=== PATIENT | male | born 1935 | race Caucasian/White ===

== ENCOUNTER 2018-01-13 10:12 | Observation (INO) | payer MEDICARE, OTHER ==
[~2018-01-13] VITALS: Ht 175.3 cm; Wt 56.8 kg
[~2018-01-13 10:12] MED LIST: AMIO200T57 PO; BIMA2.5D LEFTEYE; BRIM5DRO LEFTEYE; CLOP75TA35 PO
[2018-01-13] MEDS ORDERED: nitroGLYCERIN 0.4mg/hour patch TD ONE (10:20)
[2018-01-13 10:34] LABS: BASOPHILS % (AUTO) 0.1 % (0-1); EOSINOPHILS # (AUTO) 0.1 X10'3 (0-0.9); HEMOGLOBIN 11.4 g/dl (14.0-17.9); LYMPHOCYTES # (AUTO) 1.7 X10'3 (1.1-4.8); LYMPHOCYTES % (AUTO) 36.5 % (21-51); MEAN CORPUSCULAR HEMOGLOBIN 35.6 PG (27.0-31.0); MEAN CORPUSCULAR HGB CONC 35.7 % (33.0-36.5); MEAN CORPUSCULAR VOLUME 99.7 FL (78-98); MEAN PLATELET VOLUME 7.6 FL (7.4-10.4); MONOCYTES # (AUTO) 0.6 X10'3 (0-0.9); MONOCYTES % (AUTO) 12.5 % (2-12); NEUTROPHILS # (AUTO) 2.2 X10'3 (1.8-7.7); NEUTROPHILS % (AUTO) 47.9 % (42-75); PLATELET COUNT 206 X10'3 (140-440); RED BLOOD COUNT 3.21 X10'6 (4.70-6.10); WHITE BLOOD COUNT 4.6 X10'3 (4.5-11.0)
[2018-01-13 10:44] LABS: PARTIAL THROMBOPLASTIN TIME 31 SECONDS (22-32); PROTHROMBIN TIME 19.9 SECONDS (9.0-12.0)
[2018-01-13] MEDS ORDERED: WARF2.5T PO (10:49)
[2018-01-13] MEDS ORDERED: OMEG1CAP46 PO (10:49)
[2018-01-13] MEDS ORDERED: LEVO100T PO (10:49)
[2018-01-13] MEDS ORDERED: BILB1CAP PO (10:49)
[2018-01-13] MEDS ORDERED: SAW450CA7 PO (10:49)
[2018-01-13] MEDS ORDERED: SOTA80TA69 PO (10:49)
[2018-01-13] MEDS ORDERED: LACT1CAP65 PO (10:49)
[2018-01-13] MEDS ORDERED: IRON150C5 PO (10:49)
[2018-01-13] MEDS ORDERED: VITA-332 PO (10:49)
[2018-01-13 10:56] LABS: ALANINE AMINOTRANSFERASE 32 U/L (12-78); ALBUMIN 3.2 G/DL (3.4-5.0); ALKALINE PHOSPHATASE 70 IU/L (46-116); ANION GAP 9 (8-16); ASPARTATE AMINO TRANSFERASE 30 U/L (10-37); BILIRUBIN,TOTAL 0.6 MG/DL (0.1-1.0); BLOOD UREA NITROGEN 18 MG/DL (7-18); CALCIUM 8.9 MG/DL (8.5-10.1); CHLORIDE 100 MMOL/L (99-107); ETHANOL < 0.010 GM/DL (0.0-0.010); GLUCOSE 125 MG/DL (70-104); MAGNESIUM 2.1 MG/DL (1.5-2.4); POTASSIUM 4.3 MMOL/L (3.5-5.1); SODIUM 135 MMOL/L (135-145); TOTAL CARBON DIOXIDE 25.6 MMOL/L (24-32); TOTAL PROTEIN 6.3 G/DL (6.4-8.2); eGFR 71 ML/MIN
[2018-01-13] MEDS ORDERED: acetaminophen 325mg tablet PO PRN (12:05)
[2018-01-13] MEDS ORDERED: morphine 4 MG/ML inj SYRINge IV PRN (12:05)
[2018-01-13] MEDS ORDERED: mag hydrox/Alum hydrox/simeth 30ml oral suspension PO PRN (12:05)
[2018-01-13] MEDS ORDERED: ondansetron/PF 4mg/2ml inj IV ONE (12:05)
[2018-01-13] MEDS ORDERED: ondansetron/PF 4mg/2ml inj IV PRN (12:05)
[2018-01-13] MEDS ORDERED: magnesium hydroxide 30ml (MOM) UD suspension PO PRN (12:05)
[2018-01-13] MEDS ORDERED: morphine 4 MG/ML inj SYRINge IV ONE (12:05)
[2018-01-13] MEDS ORDERED: VITAMIN A ACETATE PO PRN (12:15)
[2018-01-13] MEDS ORDERED: FATTY ACIDS PO SCH (13:00)
[2018-01-13] MEDS ORDERED: OMEGA PO SCH (13:00)
[2018-01-13] MEDS ORDERED: brimonidine 0.2% 5 ML ophthalmic drops LEFTEYE SCH (13:00)
[2018-01-13] MEDS ORDERED: FISH OIL PO SCH (13:00)
[2018-01-13 14:00] VITALS: BP 154/75
[2018-01-13] MEDS: brimonidine 0.2% 5 ML ophthalmic drops LEFTEYE SCH ×2 (15:24→21:19)
[2018-01-13] MEDS ORDERED: WARF-55 PO ×2 (16:14)
[2018-01-13 19:01] LABS: CLARITY,URINE CLEAR (Clear); COLOR,URINE YELLOW (Yellow); GLUCOSE, URINE NEGATIVE (Neg); KETONES,URINE 15 mg/dl (Neg); LEUKOCYTE ESTERASE ,URINE NEGATIVE (Neg); NITRITES, URINE NEGATIVE (Neg); OCCULT BLOOD,URINE NEGATIVE (Neg); PROTEIN,URINE NEGATIVE (Neg); UA COLLECTION TYPE CLN CATCH MIDSTREAM; UROBILINOGEN,URINE 0.2 E.U/dL (0.2-1.0)
[2018-01-13] MEDS ORDERED: latanoprost 0.005% 2.5ml ophthalmic drops LEFTEYE SCH (21:00)
[2018-01-13] MEDS ORDERED: temazepam 15mg capsule PO PRN (21:00)
[2018-01-13] MEDS ORDERED: warfarin 2.5mg tablet PO SCH ×2 (21:00)
[2018-01-13] MEDS: sotalol 40mg tablet PO SCH (21:25)
[2018-01-13] MEDS: lactobacillus rhamnosus 10,000 MMU CELLS/CAPSULE PO SCH (21:29)
[2018-01-13 23:00] VITALS: BP 114/64
[2018-01-14 00:36] VITALS: BP 153/72
[2018-01-14 01:21] VITALS: BP 119/55
[2018-01-14] MEDS ORDERED: nitroGLYCERIN 0.4mg SUBLingual tab SL PRN (01:25)
[2018-01-14 05:42] LABS: BASOPHILS % (AUTO) 0.2 % (0-1); EOSINOPHILS # (AUTO) 0.1 X10'3 (0-0.9); EOSINOPHILS % (AUTO) 1.7 % (0-6); HEMATOCRIT 29.4 % (42.0-52.0); HEMOGLOBIN 10.3 g/dl (14.0-17.9); LYMPHOCYTES # (AUTO) 1.3 X10'3 (1.1-4.8); LYMPHOCYTES % (AUTO) 21.4 % (21-51); MEAN CORPUSCULAR HGB CONC 35.1 % (33.0-36.5); MEAN CORPUSCULAR VOLUME 102.3 FL (78-98); MEAN PLATELET VOLUME 8.4 FL (7.4-10.4); MONOCYTES # (AUTO) 0.6 X10'3 (0-0.9); MONOCYTES % (AUTO) 10.7 % (2-12); NEUTROPHILS # (AUTO) 4.1 X10'3 (1.8-7.7); PLATELET COUNT 153 X10'3 (140-440); RED BLOOD COUNT 2.87 X10'6 (4.70-6.10); RED CELL DISTRIBUTION WIDTH 13.3 % (11.5-14.5); WHITE BLOOD COUNT 6.1 X10'3 (4.5-11.0)
[2018-01-14 05:56] LABS: ANION GAP 7 (8-16); BLOOD UREA NITROGEN 18 MG/DL (7-18); BUN/CREATININE RATIO 17.6 (5.4-32.0); CALCIUM 8.4 MG/DL (8.5-10.1); CHLORIDE 101 MMOL/L (99-107); CHOL/HDL RATIO 4.6 (0.00-4.99); CHOLESTEROL 174 MG/DL (0-200); CREATININE 1.02 MG/DL (0.60-1.10); GLUCOSE 106 MG/DL (70-104); HDL CHOLESTEROL 38 MG/DL (35-60); LDL CHOLESTEROL 88 MG/DL (50-100); POTASSIUM 4.3 MMOL/L (3.5-5.1); SODIUM 135 MMOL/L (135-145); TOTAL CARBON DIOXIDE 26.8 MMOL/L (24-32); TRIGLYCERIDES 211 MG/DL (20-135); eGFR 70 ML/MIN
[2018-01-14 07:00] VITALS: BP 148/77
[2018-01-14] MEDS ORDERED: aspirin 81mg tablet.DR PO SCH (08:00)
[2018-01-14] MEDS ORDERED: BILBERRY FRUIT EXTRACT PO SCH (08:00)
[2018-01-14] MEDS ORDERED: iron polysaccharide complex 150mg capsule PO SCH (08:00)
[2018-01-14] MEDS ORDERED: SAW PALMETTO FRUIT PO SCH (08:00)
[2018-01-14] MEDS ORDERED: levoTHYROXINE 25mcg tablet PO SCH (08:00)
[2018-01-14 08:16] LABS: INR 1.8 INR; PROTHROMBIN TIME 17.8 SECONDS (9.0-12.0)
[2018-01-14] MEDS: sotalol 40mg tablet PO SCH (08:31)
[2018-01-14] MEDS: lactobacillus rhamnosus 10,000 MMU CELLS/CAPSULE PO SCH (08:31)
[2018-01-14] MEDS: brimonidine 0.2% 5 ML ophthalmic drops LEFTEYE SCH (08:32)
[2018-01-14] MEDS ORDERED: ASPI-1071 PO (10:39)
[2018-01-14] MEDS ORDERED: NITR0.4T51 SL (10:39)
[2018-01-14] MEDS ORDERED: ATOR10TA PO (17:20)
[2018-01-14] MEDS ORDERED: warfarin 5mg tablet PO SCH (21:00)
== END 2018-01-14 12:14 | disposition home or self-care (01) ==
LOC: ER 10:13 → ED HOLD 12:05 → SUR 3N 13:40
PROVIDERS: ADMIT Hospitalist; ATTEND Hospitalist
DX: R07.89 Other chest pain (principal); I48.0 Paroxysmal atrial fibrillation; D64.9 Anemia, unspecified; R06.02 Shortness of breath; E03.9 Hypothyroidism, unspecified; H40.9 Unspecified glaucoma; I48.2 Chronic atrial fibrillation; I10 Essential (primary) hypertension; Z86.718 Personal history of other venous thrombosis and embolism; Z79.01 Long term (current) use of anticoagulants
CPT/HCPCS: 36415; 71045; 80048; 80053; 80061; 80320; 81003; 83735; 83880; 84443; 84484; 85025; 85610; 85730; 87070; 93005; 93306; 96374; 96375; 96376; 99285; G0378; J2270; J2405

== ENCOUNTER 2022-01-31 10:46 | Day surgery (SDC) | payer MEDICARE ==
[2022-01-31] VITALS (12 sets, daily range): BP systolic 110–180; BP diastolic 43–85
[~2022-01-31] VITALS: Ht 175.3 cm; Wt 59.6 kg
[~2022-01-31 10:46] MED LIST changes: -AMIO200T57 PO; -BIMA2.5D LEFTEYE; -BRIM5DRO LEFTEYE; -CLOP75TA35 PO; +DOCUMENT DATE & TIME OF BETA-BLOCKER PO ONE; +HYDR-3964 PO; +LATA2.5D14 LEFTEYE; +LEVO50TA8 PO; +SOTA80TA73 PO; +SULF-14 PO; +WARF-55 PO; +cefazolin/dext.iso 2gm/50ml IV ONE; +famotidine 20mg tablet PO ONE; +ringers solution, lacted 1,000 ML IV SCH; +vancomycin/NS 1 GM in NS 250 ML IV ONE
[2022-01-31 12:43] LABS: BASOPHILS % (AUTO) 0.5 % (0-1); EOSINOPHILS # (AUTO) 0.1 X10'3 (0-0.9); EOSINOPHILS % (AUTO) 1.7 % (0-6); LYMPHOCYTES # (AUTO) 1.3 X10'3 (1.1-4.8); LYMPHOCYTES % (AUTO) 22.6 % (21-51); MEAN CORPUSCULAR HEMOGLOBIN 34.7 PG (27.0-31.0); MEAN CORPUSCULAR HGB CONC 33.9 g/dL (33.0-36.5); MEAN CORPUSCULAR VOLUME 102.4 FL (78-98); MEAN PLATELET VOLUME 8.3 FL (7.4-10.4); MONOCYTES # (AUTO) 0.6 X10'3 (0-0.9); MONOCYTES % (AUTO) 10.3 % (2-12); NEUTROPHILS # (AUTO) 3.7 X10'3 (1.8-7.7); NEUTROPHILS % (AUTO) 64.9 % (42-75); PRE OP HEMATOCRIT 37.1 % (42.0-52.0); PRE OP HEMOGLOBIN 12.6 g/dL (14.0-17.9); PRE OP PLATELET COUNT 225 X10'3 (140-440); RED BLOOD COUNT 3.63 X10'6 (4.70-6.10); RED CELL DISTRIBUTION WIDTH 13.4 % (11.5-14.5)
[2022-01-31 12:57] LABS: CLARITY,URINE CLEAR (Clear); COLOR,URINE YELLOW (Yellow); GLUCOSE, URINE NEGATIVE (Neg); KETONES,URINE TRACE mg/dl (Neg); LEUKOCYTE ESTERASE ,URINE NEGATIVE (Neg); NITRITES, URINE NEGATIVE (Neg); OCCULT BLOOD,URINE NEGATIVE (Neg); PH,URINE 7.5 (4.8-8.0); PROTEIN,URINE NEGATIVE (Neg)
[2022-01-31 12:58] LABS: ALBUMIN/GLOBULIN RATIO 0.9 (1.1-1.5); ALKALINE PHOSPHATASE 93 IU/L (46-116); BLOOD UREA NITROGEN 12 MG/DL (7-18); BUN/CREATININE RATIO 14.6 (5.4-32.0); CALCIUM 8.3 MG/DL (8.5-10.1); CHLORIDE 97 MMOL/L (99-107); CREATININE 0.82 MG/DL (0.60-1.10); PRE OP ALT 29 U/L (30-65); PRE OP ANION GAP 7 (8-16); PRE OP AST 27 U/L (10-37); PRE OP BILIRUB, TOTAL 0.6 MG/DL (0.0-1.0); PRE OP GLUCOSE 88 MG/DL (70-104); PRE OP POTASSIUM 4.1 MMOL/L (3.4-5.1); PRE OP SODIUM 133 MMOL/L (135-145); TOTAL PROTEIN 6.3 G/DL (6.4-8.2); eGFR 89 ML/MIN
[2022-01-31 13:07] LABS: UA COLLECTION TYPE CLN CATCH MIDSTREAM
[2022-01-31 13:16] LABS: PRE OP PARTIAL THROMB. TIME 36 SECONDS (22-32)
[2022-01-31] MEDS ORDERED: fentaNYL/PF 50MCG/1 ML 2ML syringe ONE (15:12)
[2022-01-31] MEDS ORDERED: propofol inj 20 ML IV ONE (15:17)
[2022-01-31] MEDS ORDERED: BUPIVAcaine 0.5% inj/PF 30 ML ONE ×2 (15:24→15:41)
[2022-01-31] MEDS ORDERED: morphine 2 MG/ML inj. syringe IV PRN (15:50)
[2022-01-31] MEDS ORDERED: meperidine/PF 25mg/ml syringe IV PRN ×3 (15:50)
[2022-01-31] MEDS ORDERED: ondansetron/PF 4mg/2ml inj IV PRN (15:50)
[2022-01-31] MEDS ORDERED: proCHLORperazine 10 MG/2 ml inj IV PRN (15:50)
[2022-01-31] MEDS ORDERED: ringers solution, lacted 1,000 ML IV SCH (15:50)
[2022-01-31] MEDS ORDERED: morphine 4 MG/ML inj SYRINge IV PRN (15:50)
--- NOTE | 2022-01-31 15:56 | NUR ---
Received from OR via [facility] , accompanied by Anesthesiologist DR TORRES and report given by Anesthesiolgist. PT PRESENTS WITH 20G RIGHT AC, LEFT FOOT DRESSING CDI, VSS. Addendum: 01/31/22 at 1616 by Lolita Rivera RN, RN Amended: Links added.
--- NOTE | 2022-01-31 17:36 | NUR ---
PT MEETS ALL DC CRITERIA. IV DC'S WITH CANULA INTACT INTACT. DC INSTRUCTIONS REVIEWED WITH PT AND PT'S LUIS CARLOS, WHO VERBALIZED UNDERSTANDING WITH NO FURTHER QUESTIONS AT THIS TIME. PT WHEELED OUT OF HOSPITAL TO PRIVATE VEHICLE. Addendum: 01/31/22 at 1818 by Lolita Rivera RN, RN Amended: Links added.
== END 2022-01-31 17:36 | disposition home or self-care (01) ==
LOC: PAS 10:46
PROVIDERS: ATTEND Podiatrist Foot & Ankle Surgery
DX: L02.612 Cutaneous abscess of left foot (principal); H40.9 Unspecified glaucoma; I48.91 Unspecified atrial fibrillation; Z20.822 Contact with and (suspected) exposure to COVID-19; Z79.899 Other long term (current) drug therapy; Z79.01 Long term (current) use of anticoagulants; Z87.891 Personal history of nicotine dependence
CPT/HCPCS: 10060; 36415; 80053; 81003; 82948; 85025; 85610; 85730; 87070; 87075; 87186; 87635; 93005; A6266; C9803; J2704; J3010; J3370; J7030; J7120; S0020; Z7506; Z7512; 87077; A4215; A4618; A6449; A7000

== ENCOUNTER 2022-03-08 10:36 | Inpatient (IN) | payer MEDICARE ==
[2022-03-07 11:51] LABS: BASOPHILS % (AUTO) 0.5 % (0-1); EOSINOPHILS # (AUTO) 0.2 X10'3 (0-0.9); EOSINOPHILS % (AUTO) 4.8 % (0-6); LYMPHOCYTES # (AUTO) 1.2 X10'3 (1.1-4.8); LYMPHOCYTES % (AUTO) 25.3 % (21-51); MEAN CORPUSCULAR HGB CONC 33.5 g/dL (33.0-36.5); MEAN CORPUSCULAR VOLUME 101.4 FL (78-98); MONOCYTES # (AUTO) 0.5 X10'3 (0-0.9); MONOCYTES % (AUTO) 10.2 % (2-12); NEUTROPHILS # (AUTO) 2.9 X10'3 (1.8-7.7); NEUTROPHILS % (AUTO) 59.2 % (42-75); PRE OP HEMATOCRIT 38.1 % (42.0-52.0); PRE OP HEMOGLOBIN 12.8 g/dL (14.0-17.9); PRE OP PLATELET COUNT 197 X10'3 (140-440); RED BLOOD COUNT 3.75 X10'6 (4.70-6.10); RED CELL DISTRIBUTION WIDTH 13.2 % (11.5-14.5)
[2022-03-07 12:05] LABS: PRE OP PROTIME 15.3 SECONDS (9.0-12.0)
[2022-03-07 12:08] LABS: PRE OP INR 1.5 INR
[2022-03-07 12:17] LABS: ALBUMIN 3.4 G/DL (3.4-5.0); ALKALINE PHOSPHATASE 88 IU/L (46-116); BLOOD UREA NITROGEN 12 MG/DL (7-18); BUN/CREATININE RATIO 15.2 (5.4-32.0); CALCIUM 8.9 MG/DL (8.5-10.1); CHLORIDE 100 MMOL/L (99-107); CREATININE 0.79 MG/DL (0.60-1.10); PRE OP ALT 26 U/L (30-65); PRE OP ANION GAP 6 (8-16); PRE OP AST 24 U/L (10-37); PRE OP BILIRUB, TOTAL 0.5 MG/DL (0.0-1.0); PRE OP GLUCOSE 98 MG/DL (70-104); PRE OP POTASSIUM 4.4 MMOL/L (3.4-5.1); PRE OP SODIUM 134 MMOL/L (135-145); TOTAL PROTEIN 6.7 G/DL (6.4-8.2); eGFR > 90 ML/MIN
[~2022-03-08] VITALS: Ht 175.3 cm; Wt 66.7 kg
[2022-03-08] VITALS (18 sets, daily range): BP systolic 132–185; BP diastolic 58–86
[~2022-03-08 10:36] MED LIST changes: +GABA600T13 PO; -HYDR-3964 PO; -SULF-14 PO; -WARF-55 PO; +WARF4TAB69 PO; +ceFAZolin inj. 2,000 MG in dextrose 5%-water 100 ML IV ONE; -cefazolin/dext.iso 2gm/50ml IV ONE; -vancomycin/NS 1 GM in NS 250 ML IV ONE
[2022-03-08] MEDS ORDERED: diphenhydrAMINE 50 mg/ml inj ONE (12:50)
[2022-03-08] MEDS ORDERED: LIDOcaine 1%/PF 5ML 10 MG/ML VIAL ONE (12:50)
[2022-03-08] MEDS ORDERED: iohexol 300 MG/1 ML 50ml polymer ONE ×2 (12:51→19:48)
[2022-03-08] MEDS ORDERED: midazolam 1 mg/ML 2ml injection ONE ×2 (12:51→17:12)
[2022-03-08] MEDS ORDERED: fentaNYL/PF 50MCG/1 ML 2ML syringe ONE (12:51)
[2022-03-08 13:00] LABS: PRE OP INR 1.2 INR; PRE OP PROTIME 12.7 SECONDS (9.0-12.0)
--- NOTE | 2022-03-08 13:41 | NUR ---
DR COLEY HERE AND GAVE INFORMED CONCENT FOR SURGERY TO PATIENT AND HIS INCLUDING ALL RISKS AND BENEFITS AND DR MONTENEGRO HAS ALSO GIVEN INFORMED CONCENT FOR ANESTHESIA. PATIENT TO GO DOWN FOR ANGIO PROCEDURE SOON
[2022-03-08] MEDS ORDERED: heparin 1,000 UNITS/NS 500ml 500 ML ONE (14:07)
[2022-03-08] MEDS ORDERED: hydrALAZINE 20mg/ml inj. IV ONE (14:20)
[2022-03-08] MEDS ORDERED: heparin 10,000 units/1 ML INJ ONE (15:00)
[2022-03-08] MEDS ORDERED: LIDOcaine 1% (10mg/ml) 2ml vial ONE (15:00)
--- NOTE | 2022-03-08 15:00 | NUR ---
PATIENT HAS RETURNED FROM ANGIO AND RIGHT GROIN SITE HAS SOME MILD EDEMA NO DRAINAGE, DOPPLAR PULSES IN FEET STABLE, V/S STABLE W/ SOME HTN. PATIENT SLEEPY BUT ORIENTED X4. AT BEDSIDE. PATIENT FLAT ON GURNEY.
--- NOTE | 2022-03-08 15:56 | NUR ---
ANGIO SIGHT TO RIGHT GROIN REMAINS UNCHANGED, NO S/S OF COMPLICATIONS
--- NOTE | 2022-03-08 16:33 | NUR ---
recheck and ANGIO SIGHT TO RIGHT GROIN REMAINS UNCHANGED, NO S/S OF COMPLICATIONS
[2022-03-08] MEDS ORDERED: morphine 4 MG/ML inj SYRINge ONE (16:51)
--- NOTE | 2022-03-08 17:00 | NUR ---
recheck and ANGIO SIGHT TO RIGHT GROIN REMAINS UNCHANGED, NO S/S OF COMPLICATIONS
[2022-03-08] MEDS ORDERED: sevoflurane 250ml liquid IH ONE (17:18)
[2022-03-08] MEDS ORDERED: hydrALAZINE 20mg/ml inj. IV PRN (18:50)
[2022-03-08] MEDS ORDERED: ringers solution, lacted 1,000 ML IV SCH (18:50)
[2022-03-08] MEDS ORDERED: labetalol 20mg/4ml (5mg/ml) syringe IV PRN (18:50)
[2022-03-08] MEDS ORDERED: morphine 4 MG/ML inj SYRINge IV PRN (18:50)
[2022-03-08] MEDS ORDERED: HYDROmorphone/PF 0.2 MG/ML SYRINGE IV PRN (18:50)
[2022-03-08] MEDS ORDERED: meperidine/PF 25mg/ml syringe IV PRN (18:50)
[2022-03-08] MEDS ORDERED: ondansetron/PF 4mg/2ml inj IV PRN ×3 (18:50→21:10)
[2022-03-08] MEDS ORDERED: proCHLORperazine 10 MG/2 ml inj IV PRN (18:50)
[2022-03-08] MEDS ORDERED: acetaminophen 1,000mg/100ml IV 100 ML IV PRN (18:50)
[2022-03-08] MEDS ORDERED: morphine 2 MG/ML inj. syringe IV PRN (18:50)
[2022-03-08] MEDS ORDERED: LIDOcaine 2% (20mg/ml) 5ml vial ONE (18:57)
[2022-03-08] MEDS ORDERED: rocuronium 10mg/ml inj IV ONE (18:57)
[2022-03-08] MEDS ORDERED: heparin 1,000unit/ml 10ml vial 10 ML ONE (18:57)
[2022-03-08] MEDS ORDERED: fentaNYL /PF 50mcg/ml 5ml ampule ONE (18:57)
[2022-03-08] MEDS ORDERED: propofol inj 20 ML IV ONE (18:57)
[2022-03-08] MEDS ORDERED: 0.9 % SODIUM CHLORIDE 10 ML VIAL ONE (18:59)
[2022-03-08] MEDS ORDERED: dexamethasone sod phosphate 4mg/ml inj. ONE (18:59)
[2022-03-08] MEDS ORDERED: ondansetron/PF 4mg/2ml inj ONE (18:59)
[2022-03-08] MEDS ORDERED: ePHEDrine 50MG/ML INJ. ONE (18:59)
[2022-03-08] MEDS ORDERED: iohexol 300 MG/1 ML 10ml vial ONE (19:47)
[2022-03-08] MEDS ORDERED: protamine sulfate 10mg/ml inj. ONE (20:32)
[2022-03-08] MEDS ORDERED: ceFAZolin 1000mg inj ONE (20:37)
[2022-03-08] MEDS ORDERED: neostigmine methylsulfate 1 MG/ML 10ml vial ONE (20:58)
[2022-03-08] MEDS ORDERED: glycopyrrolate 0.2mg/ml inj ONE (20:58)
[2022-03-08] MEDS ORDERED: HYDROmorphone inj. 0.5 MG/0.5 ML DISP.SYRIN IV PRN (21:10)
[2022-03-08] MEDS ORDERED: naloxone 0.4 mg/ml inj IV PRN (21:10)
--- NOTE | 2022-03-08 21:35 | NUR ---
Received from OR via , accompanied by Anesthesiologist and report given by Anesthesiolgist. PATIENT WAKING UP, DENIES PAIN, V/S WNL, 20G TO RUE , CL TO RIGHT NECK TRIPLE LUMEN, ARTLINE D/./C ON ARRIVAL TO RUE, 20G RUE, PROVENA DRESSING TO LEFT GROIN 125 CONTINOUS SUCTION SCANT OUT PUT CDI NO LEAKS DETECTED, AND ISLAND DRESSING TO LEFT CALF CDI. DOPPLAR PEDAL PULSES MARKED. F/C DRAINING CLEAR YELLOW URINE
--- NOTE | 2022-03-08 22:15 | NUR ---
PATIENT SLEEPY BUT ANSWERS QUESTIONS CORRECTLY, , DENIES PAIN, V/S WNL, 20G TO RUE , CL TO RIGHT NECK TRIPLE LUMEN, , 20G RUE, PROVENA DRESSING TO LEFT GROIN 125 CONTINOUS SUCTION SCANT OUT PUT CDI NO LEAKS DETECTED, AND ISLAND DRESSING TO LEFT CALF CDI. DOPPLAR PEDAL PULSES MARKED. F/C DRAINING CLEAR YELLOW URINE. PATIENT TAKEN TO 2011 WITH ALL BELONGINGS AND HOOKED UP TO MONITORS IN ROOM AND REPORT GIVEN TO RN WHO HAS TAKEN OVER PATIENT CARE.
[2022-03-08] MEDS: normal saline 1000ml 1,000 ML IV SCH (23:23)
[2022-03-08] MEDS: ceFAZolin inj. 1,000 MG in dextrose 5%-water 50ml 50 ML IV SCH (23:28)
[2022-03-08] MEDS: DexTRAN 40/D5W 500ml soln 500 ML IV SCH (23:28)
[2022-03-08] MEDS: potassium CL 20mEq in D5-1/2NS 1,000 ML IV SCH (23:29)
[2022-03-09] VITALS (17 sets, daily range): BP systolic 106–143; BP diastolic 40–58
[2022-03-09] MEDS: HYDROmorphone/PF 0.2 MG/ML SYRINGE IV PRN ×2 (00:44→03:49)
[2022-03-09] MEDS: DexTRAN 40/D5W 500ml soln 500 ML IV SCH ×5 (02:02→16:30)
[2022-03-09 03:03] LABS: BASOPHILS % (AUTO) 0.1 % (0-1); EOSINOPHILS % (AUTO) 0.2 % (0-6); HEMATOCRIT 27.9 % (42.0-52.0); HEMOGLOBIN 9.3 g/dl (14.0-17.9); LYMPHOCYTES # (AUTO) 0.7 X10'3 (1.1-4.8); LYMPHOCYTES % (AUTO) 10.8 % (21-51); MEAN CORPUSCULAR HEMOGLOBIN 34.2 PG (27.0-31.0); MEAN CORPUSCULAR HGB CONC 33.3 g/dL (33.0-36.5); MEAN CORPUSCULAR VOLUME 102.5 FL (78-98); MEAN PLATELET VOLUME 8.4 FL (7.4-10.4); MONOCYTES # (AUTO) 0.3 X10'3 (0-0.9); NEUTROPHILS # (AUTO) 5.3 X10'3 (1.8-7.7); NEUTROPHILS % (AUTO) 84.9 % (42-75); PLATELET COUNT 142 X10'3 (140-440); RED BLOOD COUNT 2.72 X10'6 (4.70-6.10); RED CELL DISTRIBUTION WIDTH 13.6 % (11.5-14.5); WHITE BLOOD COUNT 6.3 X10'3 (4.5-11.0)
[2022-03-09 03:25] LABS: GLUCOSE 193 MG/DL (70-104); POTASSIUM 3.7 MMOL/L (3.5-5.1); SODIUM 128 MMOL/L (135-145)
[2022-03-09 03:26] LABS: ALANINE AMINOTRANSFERASE 15 U/L (12-78); ALKALINE PHOSPHATASE 49 IU/L (46-116); ANION GAP 4 (8-16); ASPARTATE AMINO TRANSFERASE 16 U/L (10-37); BILIRUBIN,TOTAL 0.5 MG/DL (0.1-1.0); BLOOD UREA NITROGEN 10 MG/DL (7-18); BUN/CREATININE RATIO 16.7 (5.4-32.0); CALCIUM 7.2 MG/DL (8.5-10.1); CHLORIDE 98 MMOL/L (99-107); MAGNESIUM 1.5 MG/DL (1.5-2.4); TOTAL CARBON DIOXIDE 25.9 MMOL/L (24-32); eGFR > 90 ML/MIN
[2022-03-09 03:29] LABS: APTT 36 SECONDS (22-32)
[2022-03-09 04:01] LABS: ALBUMIN/GLOBULIN RATIO 0.6 (1.1-1.5); TOTAL PROTEIN 5.2 G/DL (6.4-8.2)
[2022-03-09] MEDS: normal saline 1000ml 1,000 ML IV SCH (04:30)
[2022-03-09] MEDS: potassium CL 20mEq in D5-1/2NS 1,000 ML IV SCH (05:10)
[2022-03-09] MEDS: ceFAZolin inj. 1,000 MG in dextrose 5%-water 50ml 50 ML IV SCH ×2 (07:20→16:23)
--- NOTE | 2022-03-09 09:00 | NUR ---
MD Choudhury at bedside. Med rec signed and faxed to pharmacy. Start Plavix 75mg D first dose now, turn off dextran 12 hours after 1st dose of plavix. D/C all other fluids. transfer to PCU with tele.
--- NOTE | 2022-03-09 09:15 | NUR ---
Called Dr Choudhury re: Na 128. He wants Dextran in NS same rate. Called pharmacy. They do not carry this. Pharmacy will contact Dr holden and get back with me.
[2022-03-09] MEDS: clopidogrel 75mg tablet PO SCH (09:47)
--- NOTE | 2022-03-09 10:57 | NUR ---
Called pharmacy again as no new orders have been entered. They will call Dr Choudhury back to confirm fluid for Na 128.
--- NOTE | 2022-03-09 11:35 | NUR ---
Per pharmacist, she got a hold of Dr Choudhury and he will call her back.
[2022-03-09] MEDS: HYDROcodone/acetaminophen 10/325mg tab PO PRN ×2 (12:15→20:44)
[2022-03-09] MEDS: gabapentin 300mg capsule PO SCH ×2 (12:30→20:45)
--- NOTE | 2022-03-09 12:53 | NUR ---
Per pt, latonoprost eye drops and warfarin he wants to take at night. Called Pharmacy, they will try to change the time.
[2022-03-09] MEDS ORDERED: latanoprost 0.005% 2.5ml ophthalmic drops LEFTEYE SCH (13:00)
[2022-03-09] MEDS ORDERED: warfarin 4mg tablet PO SCH (13:00)
--- NOTE | 2022-03-09 13:30 | NUR ---
gave report to ISABELLA Walters in PCU. All questions answered at this time.
--- NOTE | 2022-03-09 13:42 | NUR ---
D/c'd right IJ and f/c - held pressure for appropriate time, covered with gauze and Tegaderm. Pt tolerated well.
--- NOTE | 2022-03-09 14:52 | NUR ---
RECEIVED REPORT, ASSUMED CARE. PER REPORT FROM LILLIE MASON ON CICU THE PHARMACIST IS CALLING DR COLEY RE IV FLUIDS. PT SODIUM LEVEL LOW, WHAT DR COLEY WANTED ORDRERD IS NOT AVAILABLE PER PHARMACY, SPOKE WITH TANNER IN PHARMACY MYSELF. SHE DOES HAVE A CALL OUT TO DR COLEY TO CLARIFY. PT ALSO HAD NOT RECEIVED COUMADIN OR SYNTHROID SCHEDULED PRIOR TO ARRIVING, WILL ADMINISTER NOW.
[2022-03-09] MEDS: levoTHYROXINE 25mcg tablet PO SCH (15:18)
--- NOTE | 2022-03-09 19:07 | NUR ---
Problems reprioritized. Patient report given, questions answered & plan of care reviewed with ISABELLA Morales.
[2022-03-09] MEDS: sotalol 80mg tablet PO SCH (20:46)
[2022-03-09] MEDS: latanoprost 0.005% 2.5ml ophthalmic drops LEFTEYE SCH (21:00)
[2022-03-09] MEDS ORDERED: warfarin 4mg tablet PO ONE (21:00)
[2022-03-10] VITALS (9 sets, daily range): BP systolic 82–122; BP diastolic 39–63
[2022-03-10] MEDS ORDERED: normal saline 500ml IV soln 500 ML IV SCH (04:10)
--- NOTE | 2022-03-10 04:31 | NUR ---
Orders to bolus 500ml received, for low BP's 89/46 from vital machine, and Lonnie 82/54. After bolus start NS @100ml/hr per Dr Moeller.
[2022-03-10] MEDS: normal saline 1000ml 1,000 ML IV SCH ×2 (05:08→14:18)
[2022-03-10] MEDS ORDERED: normal saline 500ml IV soln 500 ML IV ONE (05:25)
[2022-03-10 06:17] LABS: BASOPHILS % (AUTO) 0.4 % (0-1); EOSINOPHILS # (AUTO) 0.1 X10'3 (0-0.9); EOSINOPHILS % (AUTO) 2.1 % (0-6); HEMOGLOBIN 8.2 g/dl (14.0-17.9); LYMPHOCYTES # (AUTO) 0.8 X10'3 (1.1-4.8); LYMPHOCYTES % (AUTO) 13.8 % (21-51); MEAN CORPUSCULAR HEMOGLOBIN 35.3 PG (27.0-31.0); MEAN CORPUSCULAR HGB CONC 34.1 g/dL (33.0-36.5); MEAN CORPUSCULAR VOLUME 103.7 FL (78-98); MEAN PLATELET VOLUME 8.6 FL (7.4-10.4); MONOCYTES # (AUTO) 0.6 X10'3 (0-0.9); MONOCYTES % (AUTO) 9.6 % (2-12); NEUTROPHILS # (AUTO) 4.5 X10'3 (1.8-7.7); NEUTROPHILS % (AUTO) 74.1 % (42-75); PLATELET COUNT 136 X10'3 (140-440); RED BLOOD COUNT 2.31 X10'6 (4.70-6.10); RED CELL DISTRIBUTION WIDTH 13.6 % (11.5-14.5)
[2022-03-10 06:25] LABS: APTT 33 SECONDS (22-32)
[2022-03-10] MEDS: sotalol 80mg tablet PO SCH ×2 (06:32→19:38)
--- NOTE | 2022-03-10 06:36 | NUR ---
Problems reprioritized. Patient report given, questions answered & plan of care reviewed with ISABELLA Palafox.
--- NOTE | 2022-03-10 06:37 | NUR ---
Patient in room PCU 3028. I have received report from Donavon MASON and had the opportunity to ask questions and assume patient care.
[2022-03-10] MEDS: clopidogrel 75mg tablet PO SCH (07:35)
[2022-03-10] MEDS: gabapentin 300mg capsule PO SCH ×3 (07:35→20:25)
[2022-03-10] MEDS: levoTHYROXINE 25mcg tablet PO SCH (07:35)
[2022-03-10 07:47] LABS: ALANINE AMINOTRANSFERASE 12 U/L (12-78); ALBUMIN 1.8 G/DL (3.4-5.0); ALKALINE PHOSPHATASE 57 IU/L (46-116); ANION GAP 5 (8-16); ASPARTATE AMINO TRANSFERASE 30 U/L (10-37); BILIRUBIN,TOTAL 0.4 MG/DL (0.1-1.0); BLOOD UREA NITROGEN 14 MG/DL (7-18); BUN/CREATININE RATIO 15.2 (5.4-32.0); CALCIUM 7.5 MG/DL (8.5-10.1); CHLORIDE 100 MMOL/L (99-107); CREATININE 0.92 MG/DL (0.60-1.10); GLUCOSE 98 MG/DL (70-104); MAGNESIUM 1.5 MG/DL (1.5-2.4); POTASSIUM 4.2 MMOL/L (3.5-5.1); SODIUM 127 MMOL/L (135-145); TOTAL CARBON DIOXIDE 22.4 MMOL/L (24-32); eGFR 78 ML/MIN
[2022-03-10 08:53] LABS: ALBUMIN/GLOBULIN RATIO 0.6 (1.1-1.5)
--- NOTE | 2022-03-10 16:25 | NUR ---
tolerates sitting in chair, participates in grooming and hygiene washing and combing his own hair.
[2022-03-10] MEDS: latanoprost 0.005% 2.5ml ophthalmic drops LEFTEYE SCH (20:26)
[2022-03-10] MEDS ORDERED: warfarin 4mg tablet PO ONE (21:00)
[2022-03-11] VITALS (7 sets, daily range): BP systolic 117–156; BP diastolic 45–79
[2022-03-11 06:01] LABS: BASOPHILS % (AUTO) 0.2 % (0-1); EOSINOPHILS # (AUTO) 0.1 X10'3 (0-0.9); EOSINOPHILS % (AUTO) 2.1 % (0-6); HEMOGLOBIN 7.5 g/dl (14.0-17.9); LYMPHOCYTES # (AUTO) 0.7 X10'3 (1.1-4.8); LYMPHOCYTES % (AUTO) 13.9 % (21-51); MEAN CORPUSCULAR HEMOGLOBIN 34.7 PG (27.0-31.0); MEAN CORPUSCULAR HGB CONC 34.3 g/dL (33.0-36.5); MEAN CORPUSCULAR VOLUME 101.3 FL (78-98); MEAN PLATELET VOLUME 8.3 FL (7.4-10.4); MONOCYTES # (AUTO) 0.4 X10'3 (0-0.9); NEUTROPHILS # (AUTO) 3.5 X10'3 (1.8-7.7); NEUTROPHILS % (AUTO) 74.8 % (42-75); PLATELET COUNT 150 X10'3 (140-440); RED BLOOD COUNT 2.16 X10'6 (4.70-6.10); RED CELL DISTRIBUTION WIDTH 13.4 % (11.5-14.5); WHITE BLOOD COUNT 4.7 X10'3 (4.5-11.0)
[2022-03-11 06:06] LABS: APTT 47 SECONDS (22-32); HEMATOCRIT 21.9 % (42.0-52.0)
[2022-03-11 06:18] LABS: ALANINE AMINOTRANSFERASE 10 U/L (12-78); ALKALINE PHOSPHATASE 70 IU/L (46-116); ANION GAP 2 (8-16); ASPARTATE AMINO TRANSFERASE 32 U/L (10-37); BILIRUBIN,TOTAL 0.6 MG/DL (0.1-1.0); BLOOD UREA NITROGEN 11 MG/DL (7-18); BUN/CREATININE RATIO 15.7 (5.4-32.0); CALCIUM 7.3 MG/DL (8.5-10.1); CHLORIDE 103 MMOL/L (99-107); GLUCOSE 95 MG/DL (70-104); MAGNESIUM 1.5 MG/DL (1.5-2.4); POTASSIUM 3.7 MMOL/L (3.5-5.1); SODIUM 130 MMOL/L (135-145); TOTAL CARBON DIOXIDE 25.3 MMOL/L (24-32); eGFR > 90 ML/MIN
--- NOTE | 2022-03-11 06:30 | NUR ---
Bedside report given with to ISABELLA Ornelas. Issues reprioritized. pt stable. No acute complaints
--- NOTE | 2022-03-11 06:32 | NUR ---
Paged Dr Fonseac. For patient in [address] Jaden Cochran, critical Hematocrit 21.9 this am. TANJA, RN [phone]
[2022-03-11 06:57] LABS: ALBUMIN/GLOBULIN RATIO 0.9 (1.1-1.5); TOTAL PROTEIN 4.3 G/DL (6.4-8.2)
[2022-03-11] MEDS: sotalol 80mg tablet PO SCH ×2 (09:55→19:18)
[2022-03-11] MEDS: gabapentin 300mg capsule PO SCH ×3 (09:55→20:16)
[2022-03-11] MEDS: clopidogrel 75mg tablet PO SCH (09:55)
[2022-03-11] MEDS: levoTHYROXINE 25mcg tablet PO SCH (09:55)
[2022-03-11] MEDS: ferrous sulfate 325mg tablet PO SCH ×2 (09:55→19:17)
[2022-03-11] MEDS ORDERED: ondansetron 4mg rapidly disintigrating tab PO PRN (13:45)
[2022-03-11] MEDS: latanoprost 0.005% 2.5ml ophthalmic drops LEFTEYE SCH (20:17)
[2022-03-11] MEDS ORDERED: warfarin 4mg tablet PO SCH (21:00)
[2022-03-12 02:00] VITALS: BP 102/52
[2022-03-12 06:04] LABS: BASOPHILS % (AUTO) 0.3 % (0-1); EOSINOPHILS # (AUTO) 0.1 X10'3 (0-0.9); EOSINOPHILS % (AUTO) 2.4 % (0-6); HEMATOCRIT 23.3 % (42.0-52.0); LYMPHOCYTES # (AUTO) 0.9 X10'3 (1.1-4.8); LYMPHOCYTES % (AUTO) 17.4 % (21-51); MEAN CORPUSCULAR HEMOGLOBIN 35.4 PG (27.0-31.0); MEAN CORPUSCULAR HGB CONC 34.4 g/dL (33.0-36.5); MEAN CORPUSCULAR VOLUME 102.8 FL (78-98); MEAN PLATELET VOLUME 8.3 FL (7.4-10.4); MONOCYTES # (AUTO) 0.5 X10'3 (0-0.9); MONOCYTES % (AUTO) 9.2 % (2-12); NEUTROPHILS # (AUTO) 3.6 X10'3 (1.8-7.7); NEUTROPHILS % (AUTO) 70.7 % (42-75); PLATELET COUNT 158 X10'3 (140-440); RED BLOOD COUNT 2.27 X10'6 (4.70-6.10); RED CELL DISTRIBUTION WIDTH 13.5 % (11.5-14.5)
[2022-03-12 06:18] LABS: ANION GAP 7 (8-16); BLOOD UREA NITROGEN 11 MG/DL (7-18); CHLORIDE 103 MMOL/L (99-107); CREATININE 0.65 MG/DL (0.60-1.10); GLUCOSE 95 MG/DL (70-104); POTASSIUM 3.7 MMOL/L (3.5-5.1); SODIUM 133 MMOL/L (135-145); TOTAL CARBON DIOXIDE 23.4 MMOL/L (24-32)
[2022-03-12 06:19] LABS: ALBUMIN 2.1 G/DL (3.4-5.0); BUN/CREATININE RATIO 16.9 (5.4-32.0); CALCIUM 7.8 MG/DL (8.5-10.1); eGFR > 90 ML/MIN
--- NOTE | 2022-03-12 06:29 | NUR ---
Change of shift report given to ISABELLA Vázquez. Issues reprioritized. Pt stable. No acute complaints.
[2022-03-12 07:00] VITALS: BP 126/49
[2022-03-12] MEDS: gabapentin 300mg capsule PO SCH (09:28)
[2022-03-12] MEDS: sotalol 80mg tablet PO SCH (09:29)
[2022-03-12] MEDS: ferrous sulfate 325mg tablet PO SCH (09:29)
[2022-03-12] MEDS: levoTHYROXINE 25mcg tablet PO SCH (09:29)
[2022-03-12] MEDS: clopidogrel 75mg tablet PO SCH (09:29)
--- NOTE | 2022-03-12 10:01 | NUR ---
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 Currently on Regular/Mech soft diet w/ 50-75% PO intake of meals likely meeting close to minimum est nutrient needs. 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 LBM 03/11. No nutrition intervention implemented at this time, will continue to monitor. Recs: 1. Continue Regular diet as tolerated 2. Bowel care per rx 3. Weekly wts Addendum: 03/12/22 at [address] Amended: Links added.
[2022-03-12 11:00] VITALS: BP 118/39
== END 2022-03-12 15:25 | DRG 253 ==
LOC: PAS IN 11:37 → EDSTATUS 15:15 → CICU 2S 18:46 → PCU 3S 03-09 14:28
PROVIDERS: ADMIT Surgery; ATTEND Surgery
PROC: 041L0JL Bypass Left Femoral Artery to Popliteal Artery with Synthetic Substitute, Open Approach (ICD-10-PCS; 2022-03-08)
PROC: B41D1ZZ Fluoroscopy of Aorta and Bilateral Lower Extremity Arteries using Low Osmolar Contrast (ICD-10-PCS; 2022-03-08)
PROC: 04CN0ZZ Extirpation of Matter from Left Popliteal Artery, Open Approach (ICD-10-PCS; principal; 2022-03-08 17:18)
DX: I73.9 Peripheral vascular disease, unspecified (principal); E87.1 Hypo-osmolality and hyponatremia; D62 Acute posthemorrhagic anemia; Z20.822 Contact with and (suspected) exposure to COVID-19; S90.922A Unspecified superficial injury of left foot, initial encounter; X58.XXXA Exposure to other specified factors, initial encounter; Y93.89 Activity, other specified; Y92.89 Other specified places as the place of occurrence of the external cause; Y99.8 Other external cause status
CPT/HCPCS: 36245; 36415; 71045; 71046; 73560; 75716; 76000; 76937; 80048; 80053; 82948; 83735; 84443; 85025; 85610; 85730; 87081; 88300; 88305; 92508; 92616; 93970; 94668; 97116; 97530; 99152; 99153; A4215; A4349; A4615; A4618; A6253; A6258; A6402; A6446; A6449; A6455; A7000; C1758; C1768; C1769; C1894; G0378; J0131; J0360; J0690; J1100; J1170; J1200; J1644; J2250; J2270; J2405; J2704; J2710; J2720; J3010; J3480; J3490; J7030; J7040; J7060; J7100; J7120; Q9967